=== PATIENT | male | born 1990 | race Caucasian/White ===

== ENCOUNTER 2019-04-22 11:54 | Emergency (ER) | payer SELFPAY ==
[~2019-04-22] VITALS: Ht 160 cm; Wt 72.6 kg
[2019-04-22 12:18] VITALS: Ht 160 cm; Wt 72.6 kg
[2019-04-22 15:07] VITALS: BP 124/75
== END 2019-04-22 15:07 | disposition home or self-care (01) ==
LOC: ED 11:54
DX: B34.9 Viral infection, unspecified (principal)

== ENCOUNTER 2019-05-30 12:43 | Emergency (ER) | payer SELFPAY ==
[~2019-05-30] VITALS: Ht 165.1 cm; Wt 73.9 kg
[2019-05-30 12:50] VITALS: BP 116/71; Ht 165.1 cm; Wt 73.9 kg
== END 2019-05-30 14:57 | disposition home or self-care (01) ==
LOC: ED 12:43
DX: J10.1 Influenza due to other identified influenza virus with other respiratory manifestations (principal)
CPT/HCPCS: 87804; J2930; J7613; J7644